=== PATIENT | male | born 1970 | race Caucasian/White ===

== ENCOUNTER 2019-03-21 13:02 | Emergency (ER) | payer SELFPAY ==
[2019-03-21 13:18] VITALS: BP 130/78; PULSE 78; TEMP 98.8; BMI 24.3
--- NOTE | 2019-03-21 13:51 | PDOC ---
History of Present Illness - General Chief Complaint: Urinary Problem Stated Complaint: URINE PROBLEM Time Seen by Provider: 03/21/19 13:22 History Source: Patient - History of Present Illness Timing/Duration: reports: constant Pain Radiation: reports: groin Past History - Past Medical History Allergies/Adverse Reactions: Allergies Allergy/AdvReac Type Severity Reaction Status Date / Time No Known Allergies Allergy Verified 03/21/19 13:15 COPD: No - Psycho Social/Smoking Cessation Hx Smoking History: Never smoked Hx Alcohol Use: No Drug/Substance Use Hx: No Review of Systems - Review of Systems Constitutional: No: Chills, Fever ABD/GI: No: Nausea, Vomiting, Abdominal cramping : Yes: Urgency. No: Burning, Discharge, Flank Pain, Hematuria, Testicular Mass, Testicular Swelling, Lesions, Testicular Pain *Physical Exam - Vital Signs Last Vital Signs Temp Pulse Resp BP Pulse Ox 98.8 F 78 16 130/78 100 03/21/19 13:16 03/21/19 13:16 03/21/19 13:16 03/21/19 13:16 03/21/19 13:16 - Physical Exam General Appearance: Yes: Appropriately Dressed. No: Apparent Distress HEENT: positive: Normal Voice Neck: positive: Supple Respiratory/Chest: negative: Respiratory Distress Gastrointestinal/Abdominal: positive: Normal Bowel Sounds, Soft. negative: Tender, Distended, Guarding, Rebound Male Genitalia: positive: normal genitalia. negative: testicular tenderness, testicular mass, epididymus tender Musculoskeletal: negative: CVA Tenderness Integumentary: positive: Dry, Warm Neurologic: positive: Fully Oriented, Alert, Normal Mood/Affect Medical Decision Making - Medical Decision Making 03/21/19 13:45 48-year-old male denies any past medical history, here with predominantly urinary urgency for the past 2 weeks. Patient states he has noticed dribbling several times but otherwise has normal stream. States sometimes when he gets the urge to go, nothing comes out. No dysuria, hematuria, testicular pain, swelling, rectal pain, urethral discharge, flank pain, nausea ,vomiting, fever or chills. No history of similar symptoms. No known history of BPH see exam Irritative voiding sxs ?prostate source, i.e BPH, unlikely acute prostatitis, ? UTI, r/o STD -ua/cx -Gc/chlam 03/21/19 14:45 UA wnl. Pt able to urinate multiple times in facility, no acute retention at this time. Will dc pt to f/u with urology for further evaluation of urinary symptoms. Strict return precautions given Discharge - Discharge Information Problems reviewed: Yes Clinical Impression/Diagnosis: Urinary urgency Condition: Good Disposition: HOME - Follow up/Referral - Patient Discharge Instructions Additional Instructions: The cause of your symptoms are unclear at this time but your urine today was negative for signs of infection. We have also send off STD test on your urine which will come back in about 3 to 5 days. We will call you if those tests are positive, otherwise you can call us at [phone] You will need further evaluation with a urologist. Please follow-up at [facility] at [phone] to make an appointment to see urology - Post Discharge Activity
[2019-03-21 14:34] LABS: URINE APPEARANCE Clear; URINE BILIRUBIN Negative (NEGATIVE); URINE COLOR Yellow; URINE GLUCOSE (UA) Negative (NEGATIVE); URINE KETONE Negative (NEGATIVE); URINE LEUK ESTERASE Negative (NEGATIVE); URINE NITRITE Negative (NEGATIVE); URINE PROTEIN Negative (NEGATIVE); URINE UROBILINOGEN 0.2 mg/dL (0.2-1.0)
== END 2019-03-21 14:46 | disposition home or self-care (01) ==
LOC: JERFT 13:02
DX: R39.15 Urgency of urination (principal)
CPT/HCPCS: 36415; 81003; 84703; 87086; 87491; 87591; 99282-25